=== PATIENT | female | born 1985 | race Caucasian/White ===

== ENCOUNTER 2020-10-27 18:33 | Emergency (ER) | payer BC, SELFPAY ==
[2020-10-27 18:35] VITALS: BP 162/96; PULSE 87; RESP 18; TEMP 36.4; O2SAT 99; BMI 38.9
--- NOTE | 2020-10-27 18:45 | ED.VIS.GEN ---
History of Present Illness Chief Complaint: Sore Throat Informant: Patient Onset: Yesterday Context: Sudden Onset Timing: Continuous Quality: Tight narrowing sensation of throat Location: Neck Current Severity: Mild Maximum Severity: Moderate Worsened by: Possibly swallowing Relieved by: Nothing Associated Symptoms: No drooling, change in voice Past Medical History - Allergies and Home Meds Allergies/Adverse Reactions: Allergies cefaclor [From Ceclor] Allergy (Verified 10/27/20 18:34) PT UNSURE OF REACTION Physical Exam Vital Signs/Narrative: Vital Signs Temp Pulse Resp BP Pulse Ox 10/27/20 18:35 97.5 F L 87 18 162/96 H 99 Diagnostic/Tx/Re-eval Chest X-Ray - ED: 2 View, Read by ED Physician, Normal, - - Subareolar area is normal-appearing. Prevertebral space is normal. Epiglottis appears normal. There is no narrowing of the airway. ED Disposition - Plan for ED Patient: Disposition: Home or Assisted Living Diagnosis: Dysphagia Instructions: ED Dysphagia (Adult) Prescriptions: Famotidine [Pepcid] 20 mg PO BID #28 tab Transmission Status: Pending to [id number] Referrals: Enrique Pandya MD [NON-STAFF] - 1 Week
--- NOTE | 2020-10-27 18:54 | RAD_ITS ---
STUDY: X-RAY - SOFT TISSUE NECK REASON FOR EXAM: Female, 35 years old. Throat feels tight and narrowing TECHNIQUE: 2 view(s) of the neck were obtained. COMPARISON: None. FINDINGS: Normal visualized nasopharynx, oropharynx, hypopharynx. Normal epiglottis. Normal visualized subglottic tracheal air column. Normal prevertebral soft tissue structures. Normal visualized osseous structures. The soft tissue structures are unremarkable. RAD/Neck for Soft Tissue IMPRESSION: Normal x-ray soft tissue neck. Electronically Signed: David Fuentes DO at 20:26 EDT Tel [phone], Service support ,
== END 2020-10-27 19:44 | disposition home or self-care (01) ==
LOC: ED 19:31
PROVIDERS: Emergency Provider Emergency Medicine; PCP Family Medicine
DX: R13.10 Dysphagia, unspecified (principal)
CPT/HCPCS: 70360; 99282

== ENCOUNTER 2021-01-30 22:34 | Emergency (ER) | payer BC, SELFPAY ==
[2021-01-30 22:35] VITALS: BP 155/111; PULSE 108; RESP 16; TEMP 36.3; O2SAT 97; BMI 39.1
--- NOTE | 2021-01-30 23:15 | EX.ED.DYSGE1 ---
HPI History of Present Illness Chief Complaint: Ear Problem Informant: patient Narrative Narrative: 35-year-old female presenting to the emergency room with left ear pain and sore throat. Patient states that for about a week now she has had an upper respiratory infection with some rhinorrhea and slight cough. She has previously had Covid. She states that her 2 oldest children went to vacation [employer] and came home with an illness. Her is also ill and is here to be seen. She notes subjective fever. [facility] Medical History (Updated 01/30/21 @ 23:[address] Kyree Villanueva DO) GERD (gastroesophageal reflux disease) Home Medications famotidine 20 mg PO BID #28 tab 10/27/20 [Rx Last Taken Unknown] amoxicillin 500 mg PO TID #30 tab 01/30/21 [Rx Last Taken Unknown] Allergy/AdvReac Type Severity Reaction Status Date / Time cefaclor [From [facility]] Allergy PT UNSURE Verified 10/27/20 18:34 OF REACTION Social History (Updated 01/30/21 @ 23:[address] Kyree Villanueva DO) Smoking Status: Never smoker substance use type: does not use ROS ROS ED Constitutional Constitutional ED: Reports fever(s) and subjective; Denies chills or weight loss Eyes Eyes: Denies change in vision or diplopia ENT ENT ED: Reports ear pain, rhinorrhea and sore throat Cardiovascular Cardiovascular: Denies chest pain, orthopnea, palpitations or racing heartbeat Respiratory/Chest Respiratory/Chest: Reports cough; Denies dyspnea or orthopnea Gastrointestinal Gastrointestinal: Denies abdominal pain, diarrhea, nausea or vomiting Genitourinary Genitourinary ED: Denies dysuria, hematuria or urinary frequency Musculoskeletal Musculoskeletal: Denies arthralgias or myalgias Integumentary Denies abscess or rash Neurologic Neurologic: Denies headache(s) or weakness Psychiatric Psychiatric: Denies anxiety, depression, suicidal ideation or suicidal thoughts Endocrine Endocrinology: Denies polydipsia, polyphagia or polyuria Allergic/Immunologic Allergic/Immunologic ED: Denies mouth swelling, tongue swelling or urticaria EXAM Physical Exam Const Vital Signs: 01/30/21 22:35 Temperature 97.3 F L Temperature Source Temporal Pulse Rate 108 H Respiratory Rate 16 Blood Pressure 155/111 H Blood Pressure Mean 125 Pulse Ox 97 Oxygen Delivery Method Room Air Positive well nourished and well developed General Appearance ED: well developed HEENT Reports normocephalic, head/scalp atraumatic and moist mucous membranes HEENT Narrative: Right tympanic membrane shows chronic scarring. Left tympanic membrane is erythematous with fluid and loss of landmarks. Mild oral pharyngeal erythema Eyes PERRL and EOMs intact bilaterally Neck no lymphadenopathy, supple and no JVD Resp normal respiratory effort and clear to auscultation bilaterally Cardio regular rate, regular rhythm and no murmurs GI normal to inspection, nondistended, normoactive bowel sounds and non-tender Palpation: soft Back/Spine no CVA tenderness and normal ROM Extremity normal to inspection General Extremety ED: Negative for edema General Extremity: Negative for edema Neuro oriented x3 and CN's II-XII intact bilaterally Sensorium / Orientation: alert Motor Exam: strength 5/5 throughout Psych mental status grossly normal Mood & Affect: Negative for depressed or tearful Skin no rashes or lesions noted and no wounds MDM MDM MDM Narrative Medical decision making narrative: Patient will be started on amoxicillin. Tylenol Motrin for pain. Follow-up as needed Discharge Plan Triage Chief Complaint: Ear Problem ED Provider: Kyree Villanueva Dx/Rx/DC Orders Clinical Impression: Viral URI, Acute left otitis media Instructions: ED Otitis Media Antibiotic ... Prescriptions: New amoxicillin 500 MG tablet 500 mg PO TID Qty: 30 RF: 0 No Action famotidine 20 MG tablet 20 mg PO BID Qty: 28 RF: 0 Primary Care Provider: Enrique Pandya Referrals: Enrique Pandya MD [Primary Care Provider] - 1 Week if not improving Disposition Disposition: Home, Self Care
[2021-01-30 23:36] VITALS: BP 155/111; PULSE 108; RESP 16; TEMP 36.3; O2SAT 97
[2021-01-30] MEDS: AMOXICILLIN 500 MG CAPSULE PO (23:36)
== END 2021-01-30 23:37 | disposition home or self-care (01) ==
PROVIDERS: Emergency Provider Emergency Medicine; PCP Family Medicine
DX: H66.92 Otitis media, unspecified, left ear (principal); J06.9 Acute upper respiratory infection, unspecified; K21.9 Gastro-esophageal reflux disease without esophagitis
CPT/HCPCS: 99282

== ENCOUNTER 2021-09-09 18:31 | Emergency (ER) | payer BC, SELFPAY ==
[2021-09-09 18:32] VITALS: BP 160/116; PULSE 99; RESP 18; TEMP 36.6; O2SAT 100; BMI 43.2
--- NOTE | 2021-09-09 19:00 | EX.ED.DYSGE1 ---
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 She also has history anxiety disorder. She recently started a job which is stressful per patient. She started this job 1 week ago. She is presently breast-feeding. She was on Xanax but discontinued after she became . She denies alcohol or drug use. She denies any other symptoms. Prior similar symptoms: Yes Recent Illness/Hospitalization: No [facility] Medical History (Updated 09/09/21 @ 19:[address] Mayo Bonilla MD) GERD (gastroesophageal reflux disease) Home Medications famotidine 20 mg PO BID #28 tab 10/27/20 [Rx Last Taken Unknown] amoxicillin 500 mg PO TID #30 tab 01/30/21 [Rx Last Taken Unknown] Allergy/AdvReac Type Severity Reaction Status Date / Time cefaclor [From Ceclor] Allergy PT UNSURE Verified 09/09/21 18:32 OF REACTION Social History (Updated 09/09/21 @ 19:[address] Mayo Bonilla MD) household members: children Smoking Status: Never smoker alcohol intake: current alcohol intake frequency: other substance use type: does not use ROS ROS ED Constitutional Constitutional ED: Denies chills, fever(s), subjective, sweats or weight loss Eyes Eyes: Denies blurry vision, change in vision or diplopia ENT ENT ED: Denies ear pain, rhinorrhea or sore throat Cardiovascular Cardiovascular: Reports palpitations and racing heartbeat; Denies chest pain, orthopnea or paroxysmal nocturnal dyspnea Respiratory/Chest Respiratory/Chest: Reports dyspnea; Denies cough, dyspnea on exertion, orthopnea, paroxysmal nocturnal dyspnea or sputum Gastrointestinal Gastrointestinal: Denies abdominal pain, diarrhea, nausea or vomiting Genitourinary Genitourinary ED: Denies dysuria, hematuria or urinary frequency Musculoskeletal Musculoskeletal: Denies arthralgias, myalgias or neck pain Neurologic Neurologic: Denies headache(s) or weakness Psychiatric Psychiatric: Reports anxiety; Denies depression Endocrine Endocrinology: Denies polydipsia, polyphagia or polyuria EXAM Physical Exam Const Vital Signs: 09/09/21 18:32 Temperature 98 F Temperature Source Temporal Pulse Rate 99 Respiratory Rate 18 Blood Pressure 160/116 H Blood Pressure Mean 130 Pulse Ox 100 Oxygen Delivery Method Room Air Positive well nourished, well developed and obese General Appearance ED: well developed and other Patient is taking very deep breaths. ; Negative for cyanotic, diaphoretic or NAD Nutritional Appearance: obese HEENT Reports moist mucous membranes HEENT Narrative: Positive's [place] sign Negative for trauma or tenderness Eyes PERRL and EOMs intact bilaterally General Eye ED: Negative for pale conjunctiva or scleral icterus Neck No no lymphadenopathy, No supple and No no JVD Resp normal respiratory effort Cardio regular rate and regular rhythm Extremity normal to inspection Neuro oriented x3 and CN's II-XII intact bilaterally Sensorium / Orientation: alert Psych Psych Narrative: Patient's heart rate elevated because she thought I said that her funduscopic exam was abnormal when I stated it was normal. She states she gets very anxious easily. Mood & Affect: anxious Skin no rashes or lesions noted and no wounds MDM MDM MDM Narrative Medical decision making narrative: Patient with anxiety reaction and hyperventilation syndrome. Patient does not want medications because she is breast-feeding. Discharge Plan Triage Chief Complaint: Anxiety ED Provider: Mayo Bonilla Dx/Rx/DC Orders Clinical Impression: Panic attack, Acute hyperventilation syndrome Instructions: ED Anxiety Reaction, ED Hyperventilation Syndrome Prescriptions: No Action famotidine 20 MG tablet 20 mg PO BID Qty: 28 RF: 0 amoxicillin 500 MG tablet 500 mg PO TID Qty: 30 RF: 0 Primary Care Provider: Enrique Pandya Referrals: Enrique Pandya MD [Primary Care Provider] - 5-7 Days Disposition Disposition: Home, Self Care
[2021-09-09 19:14] VITALS: BP 158/96; PULSE 96; RESP 16; O2SAT 97
== END 2021-09-09 19:16 | disposition home or self-care (01) ==
LOC: ED 19:10
PROVIDERS: Emergency Provider Emergency Medicine; PCP Family Medicine; Visit Provider Emergency Medicine
DX: F41.0 Panic disorder [episodic paroxysmal anxiety] (principal); F41.1 Generalized anxiety disorder; R06.4 Hyperventilation; K21.9 Gastro-esophageal reflux disease without esophagitis
CPT/HCPCS: 99284

== ENCOUNTER 2021-12-20 16:03 | Emergency (ER) | payer BC, SELFPAY ==
[2021-12-20 16:04] VITALS: BP 140/92; PULSE 85; RESP 14; TEMP 36.6; O2SAT 100; BMI 41.9
[2021-12-20 16:49] LABS: Absolute Lymphocyte Count 2.25 X10^3/uL (0.83-4.51); Absolute Neutrophil Count 8.2 X10^3/uL (2.0-7.7); Basophil# 0.06 X10^3/uL; Basophil% 0.5 % (0-1); Eosinophil# 0.12 X10^3/uL; Eosinophils% 1.1 % (0-5); Hematocrit 38.5 % (37-47); Hemoglobin 13.1 g/dL (12.0-15.0); Lymphocyte # 2.25 X10^3/ul (0.83-4.51); Lymphocyte % 19.8 % (19-41); Mean Corpuscular Hgb 30.3 pg (27.0-32.0); Mean Corpuscular Volume 88.9 fL (81-99); Monocyte# 0.71 X10^3/uL; Monocyte% 6.2 % (0-10); NRBC Flagged by Analyzer 0 % (0-5); Platelet Count 358 K/mm3 (150-450); RBC Distribution Width SD 39.3 fl (35.1-43.9); Red Blood Count 4.33 M/mm3 (4.2-5.4); White Blood Count 11.4 K/mm3 (4.4-11.0)
--- NOTE | 2021-12-20 16:54 | EDS_ITS ---
HPI <NED Merino - Last Filed: 12/20/21 18:51> History of Present Illness Chief Complaint: Nausea/Vomiting Narrative Narrative: Patient appears well, patient appears nontoxic, vital signs are stable. Patient presents to the emergency with complaints of nausea and vomiting status post 9 days gastric bypass. Patient states that yesterday she ate scrambled eggs in the morning, since eating the scrambled eggs she had pain in her abdomen shot to her back. She had multiple episodes of vomitus, back pain. She called her surgeon on-call who told her to go to the emergency department at [facility]. Patient was at [facility] for 6 hours did not g et seen and went home. Today, the patient felt much better however did have some dizziness feels dehydrated. She did go to urgent care who ruled her out for urinary tract infection however because of her dizziness want her to go to the emergency department for IV fluids. She denies any fever or chills. PFSH <END Merino - Last Filed: 12/20/21 18:51> PFSH Medical History (Updated 12/20/21 @ 18:51 by NED Merino) GERD (gastroesophageal reflux disease) Home Medications omeprazole 20 mg PO DAILY 12/20/21 [History Last Taken Unknown] Allergy/AdvReac Type Severity Reaction Status Date / Time cefaclor [From [facility]] Allergy PT UNSURE Verified 12/20/21 16:04 OF REACTION Social History (Updated 09/09/21 @ 19:[address] Mayo Bonilla MD) household members: children Smoking Status: Never smoker alcohol intake: current alcohol intake frequency: other substance use type: does not use ROS <NED Merino - Last Filed: 12/20/21 18:51> ROS ED ROS Narrative Constitutional: Negative for fever, chills, weight loss, weakness Eyes: Negative for vision loss, vision change, double vision ENT: Negative for any sore throat, ear pain, congestion Cardiovascular: Negative for any chest pain, tightness, palpitations Respiratory: Negative for any cough, sputum production, hemoptysis, dyspnea, dyspnea on exertion, orthopnea Gastrointestinal: Negative for any abdominal pain, diarrhea, constipation, blood in stool, blood in vomit. Positive for nausea and vomiting : Negative for any urinary frequency, dysuria, retention, blood in urine Muscle skeletal: Negative for any muscle joint pain, stiffness, myalgias, arthralgias, neck pain. Positive abdominal pain that radiates to the back Neurological: Negative for any headache, syncope, numbness or tingling, dizziness Skin: Negative for any rashes, lumps, itching, abrasions, lacerations Psychiatric: Negative for any depression, anxiety, stress, suicidal ideation, homicidal ideation Hematologic: Negative for any easy bruising, excessive bruising, easy bleeding Allergies: Negative for any eczema, hives, rash EXAM <NED Merino - Last Filed: 12/20/21 18:51> Physical Exam Narrative Exam Narrative: Vital signs reviewed. HEET: Head normocephalic atraumatic, TMs clear bilaterally. Posterior pharynx is clear, moist mucous membranes. Nares clear bilaterally. Neck: Supple with no lymphadenopathy or tenderness. No signs of meningismus, negative jolt sign. Cardiac: Regular rate and rhythm no murmurs gallops or rubs, equal peripheral pulses bilaterally. Respiratory: Lungs clear to auscultation bilaterally. No chest tenderness. Abdomen: Soft, nontender, nondistended. No abdominal bruit or pulsatile masses. No hepatosplenomegaly Extremities: No peripheral edema, no signs of gross trauma or deformity. Active full range of motion of all extremities. Neuro: Cranial nerves II through XII intact, no focal neurological deficits. Skin: Clean dry and intact with no rash, purpura, petechiae, vesicles or pustules. Backs/flank: No CVA tenderness, no midline spinal tenderness, no deformity. Psych: Normal mood and affect. No SI, HI or acute psychosis. Const Vital Signs: 12/20/21 16:04 Temperature 98 F Temperature Source Temporal Pulse Rate 85 Respiratory Rate 14 Blood Pressure 140/92 H Blood Pressure Mean 108 Pulse Ox 100 Oxygen Delivery Method Room Air Positive well nourished, well developed and obese General Appearance ED: well developed Nutritional Appearance: obese <Dr. María Chau MD - Last Filed: 12/20/21 23:48> Physical Exam Const Vital Signs: 12/20/21 16:04 Temperature 98 F Temperature Source Temporal Pulse Rate 85 Respiratory Rate 14 Blood Pressure 140/92 H Blood Pressure Mean 108 Pulse Ox 100 Oxygen Delivery Method Room Air MDM <NED Merino - Last Filed: 12/20/21 18:51> [facility] MDM Narrative Medical decision making narrative: Patient appears well, patient appears nontoxic, vital signs are stable. Patient presents to the emergency department with complaints of nausea and vomiting post gastric bypass 9 days ago. Patient did go to [facility] last evening for 6 hours did not get seen and then was told to come here the next day. Patient has no pain today. Patient states she just felt dehydrated was little dizzy. Patient did receive basic laboratory values, patient CBC only shows slight leukocytosis with a white blood count of 11.4. Patient's chemistries were unremarkable. Patient did receive IV fluids, she did feel better, while at rest she is asymptomatic. Patient did contact her surgeon while she was here, and she was told to only drink clear liquids until follow-up. At this time, there is no acute pathology, patient is in room looking comfortable and in no distress vital signs are stable. Patient stable for discharge. Instructed return for any worsening symptoms. Lab Data Attestation: I reviewed the patient's lab results. Labs: Laboratory Results - last 24 hr 12/20/21 12/20/21 12/20/21 16:30 16:30 17:40 WBC 11.4 H RBC 4.33 Hgb 13.1 Hct 38.5 MCV 88.9 MCH 30.3 MCHC 34.0 RDW Std Deviation 39.3 RDW Coeff of Jase 12.0 Plt Count 358 MPV 10.0 Immature Gran % (Auto) 0.400 Neut % (Auto) 72.0 H Lymph % (Auto) 19.8 [place] % (Auto) 6.2 Eos % (Auto) 1.1 Baso % (Auto) 0.5 Absolute Neuts (auto) 8.2 H Absolute Lymphs (auto) 2.25 Nucleated RBC % 0 Sodium Cancelled 137 Potassium Cancelled 4.8 Chloride Cancelled 107 Carbon Dioxide Cancelled 24.0 Anion Gap Cancelled 6 BUN Cancelled 16 Creatinine Cancelled 0.64 Estim Creat Clear Calc Cancelled 119.31 Est GFR (MDRD) Af Amer Cancelled 134 Est GFR (MDRD) Non-Af Cancelled 111 BUN/Creatinine Ratio Cancelled 24.8 H Glucose Cancelled 93 Calcium Cancelled 8.5 Total Bilirubin Cancelled 0.50 AST Cancelled 52 H ALT Cancelled 74 H Alkaline Phosphatase Cancelled 59 Total Protein Cancelled 7.0 Albumin Cancelled 3.2 Globulin Cancelled 3.8 Albumin/Globulin Ratio Cancelled 0.8 L Lipase Cancelled 145 <Dr. María Chau MD - Last Filed: 12/20/21 23:48> [facility] Lab Data Labs: Laboratory Results - last 24 hr 12/20/21 12/20/21 12/20/21 16:30 16:30 17:40 WBC 11.4 H RBC 4.33 Hgb 13.1 Hct 38.5 MCV 88.9 MCH 30.3 MCHC 34.0 RDW Std Deviation 39.3 RDW Coeff of Jase 12.0 Plt Count 358 MPV 10.0 Immature Gran % (Auto) 0.400 Neut % (Auto) 72.0 H Lymph % (Auto) 19.8 [place] % (Auto) 6.2 Eos % (Auto) 1.1 Baso % (Auto) 0.5 Absolute Neuts (auto) 8.2 H Absolute Lymphs (auto) 2.25 Nucleated RBC % 0 Sodium Cancelled 137 Potassium Cancelled 4.8 Chloride Cancelled 107 Carbon Dioxide Cancelled 24.0 Anion Gap Cancelled 6 BUN Cancelled 16 Creatinine Cancelled 0.64 Estim Creat Clear Calc Cancelled 119.31 Est GFR (MDRD) Af Amer Cancelled 134 Est GFR (MDRD) Non-Af Cancelled 111 BUN/Creatinine Ratio Cancelled 24.8 H Glucose Cancelled 93 Calcium Cancelled 8.5 Total Bilirubin Cancelled 0.50 AST Cancelled 52 H ALT Cancelled 74 H Alkaline Phosphatase Cancelled 59 Total Protein Cancelled 7.0 Albumin Cancelled 3.2 Globulin Cancelled 3.8 Albumin/Globulin Ratio Cancelled 0.8 L Lipase Cancelled 145 Treatment and Re-Evaluation Narrative: Patient seen and evaluated with STALIN. I personally interviewed and examined the patient. I was involved in all aspects of patient's orders, interpretation of results, and treatment. Patient presents secondary to concerns for dehydration. Patient had gastric bypass surgery 9 days ago. Yesterday she ate some scrambled eggs and developed epigastric abdominal pain. She went to [facility] to be evaluated as this is where she had had her surgery. She waited several hours and still had not been seen. She vomited and that her pain felt improved. There was concern that the patient was dehydrated and came in for IV fluids. She denies nausea at this time. Patient sitting upright in bed no acute distress. Head neck examination unremarkable. Heart is regular rate and rhythm. Lung sounds are clear. Abdomen is soft and nontender. Patient is given IV fluids. Lab work obtained. CBC reveals mildly elevated white count at 11.4. Chemistry studies unremarkable. Patient discharged home to continue her current regimen. Return instructions given. Discharge Plan Triage Chief Complaint: Nausea/Vomiting ED Midlevel Provider: Jluis Calles ED Provider: María Chau Dx/Rx/DC Orders Clinical Impression: Nausea & vomiting Instructions: ED Vomiting (Adult) Prescriptions: No Action omeprazole 20 mg capsule,delayed release(DR/EC) 20 mg PO DAILY RF: 0 Primary Care Provider: Enrique Pandya Referrals: Enrique Pandya MD [Primary Care Provider] - Activity Restrictions/Additional Instructions: Please follow your surgeons instructions. Please change positions slowly. Return for any other pain, nausea vomiting Print Language: Icelandic Disposition Disposition: Home, Self Care Discharge Date/Time: 12/20/21 18:56
[2021-12-20 18:25] LABS: ALB/GLOB Ratio 0.8 RATIO (0.9-2.4); AST(SGOT) 52 U/L (15-37); Alanine Aminotransfer ALT/SGPT 74 U/L (13-56); Albumin, Serum 3.2 g/dL (3.2-5.0); Alkaline Phosphatase 59 U/L (45-117); Anion Gap 6 (5-15); BUN 16 mg/dL (7-18); BUN/Creat Ratio 24.8 RATIO (10-20); Calcium,Total 8.5 mg/dL (8.5-10.1); Chloride 107 mmol/L (98-107); Creatinine, Serum 0.64 mg/dL (0.55-1.02); EST Glomerular Filtration Rate 111 mL/min (>60); Est Glom Filt Rate - Afr Amer 134 mL/min (>60); Estimated Creatinine Clearance 119.31 ml/min; Globulin 3.8 g/dL (2.2-4.2); Glucose 93 mg/dL (74-106); Lipase 145 U/L (73-393); Potassium 4.8 mmol/L (3.5-5.1); Sodium Level 137 mmol/L (136-145)
== END 2021-12-20 18:56 | disposition home or self-care (01) ==
PROVIDERS: Nurse Practitioner; Emergency Provider Emergency Medicine; PCP Family Medicine; Visit Provider Emergency Medicine
DX: R11.2 Nausea with vomiting, unspecified (principal); M54.9 Dorsalgia, unspecified; R42 Dizziness and giddiness; Z98.84 Bariatric surgery status; K21.9 Gastro-esophageal reflux disease without esophagitis
CPT/HCPCS: 80053; 83690; 85025; 99282; J7030; A4216

== ENCOUNTER 2022-08-12 16:48 | Emergency (ER) | payer BC, SELFPAY ==
[2022-08-12 16:50] VITALS: BP 154/93; PULSE 100; RESP 14; TEMP 36.6; O2SAT 100; BMI 25.7
--- NOTE | 2022-08-12 16:50 | ED.RN ---
PT COMPLAINING AND ANGRY D/T WAIT.
--- NOTE | 2022-08-12 16:52 | ED.RN ---
PT IRRITATED WITH QUESTIONS IN TRIAGE.
--- NOTE | 2022-08-12 17:38 | ED.RN ---
pt demanding to lay down. pt placed in spare triage room.
[2022-08-12] MEDS: Loperamide 2 MG Capsule 4 MG PO (19:32)
[2022-08-12] MEDS: 0.9% Normal Saline 1,000 ML 1000 ML IV (19:33)
[2022-08-12 19:36] VITALS: PULSE 84
[2022-08-12 19:45] LABS: Absolute Neutrophil Count 5.9 X10^3/uL (2.0-7.7); Basophil# 0.05 X10^3/uL; Basophil% 0.6 % (0-1); Color, Urine Yellow (Yellow); Eosinophil# 0.05 X10^3/uL; Eosinophils% 0.6 % (0-5); Glucose, Dipstick Normal (Normal); Hematocrit 39.2 % (37-47); Hemoglobin 12.6 g/dL (12.0-15.0); Ketone-Dipstick Negative (Negative); Leukocyte Esterase-Dipstick Negative /ul (Negative); Mean Corp Hgb Conc 32.1 g/dL (32-36); Mean Corpuscular Hgb 28.6 pg (27.0-32.0); Mean Corpuscular Volume 88.9 fL (81-99); Monocyte# 0.37 X10^3/uL; Monocyte% 4.5 % (0-10); NRBC Flagged by Analyzer 0 % (0-5); Neutrophil # 5.88 X10^3/uL (2.7-7.7); Neutrophil % 71.1 % (47-70); Nitrite-Dipstick Negative (Negative); Occult Blood-Urine Negative /ul (Negative); Platelet Count 358 K/mm3 (150-450); Protein-Dipstick Negative (Negative); RBC Distribution Width SD 42.3 fl (35.1-43.9); Red Blood Count 4.41 M/mm3 (4.2-5.4); Specific Gravity, Urine 1.015 (1.002-1.030); Urine Bilirubin Dipstick Negative (Negative); Urine Clarity Clear (Clear); Urine Urobilinogen Normal (Normal); White Blood Count 8.3 K/mm3 (4.4-11.0)
[2022-08-12 19:57] LABS: Anion Gap 10 (5-15); BUN 14 mg/dL (7-18); BUN/Creat Ratio 16.3 RATIO (10-20); Calcium,Total 9.4 mg/dL (8.5-10.1); Chloride 108 mmol/L (98-107); Creatinine, Serum 0.86 mg/dL (0.55-1.02); EST Glomerular Filtration Rate 79 mL/min (>60); Est Glom Filt Rate - Afr Amer 96 mL/min (>60); Estimated Creatinine Clearance 78.09 ml/min; Glucose 114 mg/dL (74-106); Potassium 3.3 mmol/L (3.5-5.1); Sodium Level 141 mmol/L (136-145)
--- NOTE | 2022-08-12 21:06 | EX.ED.DYSGE1 ---
HPI History of Present Illness Chief Complaint: Weakness Detail of Chief Complaint: Generalized weakness, orthostatic symptoms, rapid heart rate and diarrhea Informant: patient Onset/Context/Timing Onset: Days (Abdomen started 8 days ago) Context: Sudden Onset Timing: Waxes and wanes Quality: Weakness, orthostatic symptoms and anxiousness when she stands. Location: GI and cardiovascular Current Severity: Mild Maximum Severity: Severe Worsened by: Standing Relieved by: Nothing Associated Symptoms Associated Symptoms: Nausea and minimal vomiting Narrative Narrative: Patient is a 37-year-old female status post gastric bypass surgery with 69 pound weight loss. She has history anxiety. She treats her anxiety with supplements. She is on supplements. She denies recent illness and use of antibiotics. She denies contact with anyone that is ill. She denies blood or mucus in her diarrhea. She denies history of pseudomembranous colitis. She denies decreased urine output. She states she believes she is well-hydrated. She denies documented fever. She states when she stands she becomes anxious and lightheaded and her heart rate is fast. She endorses myalgias and arthralgias. Denies joint swelling. She has taken nothing for her nausea or vomiting. Prior similar symptoms: No Recent Illness/Hospitalization: No PFSH PFSH Medical History GERD (gastroesophageal reflux disease) Home Medications omeprazole 20 mg capsule,delayed release 20 mg PO DAILY 12/20/21 [History Last Taken Unknown] Allergy/AdvReac Type Severity Reaction Status Date / Time cefaclor [facility] Allergy PT UNSURE Verified 12/20/21 16:04 OF REACTION Social History household members: children Smoking Status: Never smoker alcohol intake: current alcohol intake frequency: other substance use type: does not use ROS ROS ED Constitutional Constitutional ED: Reports chills and weight loss; Denies sweats Eyes Eyes: Denies blurry vision, change in vision or diplopia ENT ENT ED: Denies ear pain, rhinorrhea or sore throat Cardiovascular Cardiovascular: Reports palpitations and racing heartbeat; Denies chest pain Respiratory/Chest Respiratory/Chest: Denies cough, dyspnea or dyspnea on exertion Gastrointestinal Gastrointestinal: Reports abdominal pain, diarrhea and nausea; Denies melena Genitourinary Genitourinary ED: Denies dysuria, hematuria or urinary frequency Musculoskeletal Musculoskeletal: Reports arthralgias and myalgias; Denies back pain or neck pain Integumentary Denies abscess, Abrasions or rash Neurologic Neurologic: Reports weakness; Denies headache(s) or paresthesias Psychiatric Psychiatric: Reports anxiety; Denies depression Hematologic/Lymphatic Hematologic/Lymphatic: Reports systems reviewed and no addt'l complaints, except as documented EXAM Physical Exam Const Vital Signs: 08/12/22 16:50 08/12/22 19:36 08/12/22 21:19 Temperature 98 F Temperature Source Temporal Pulse Rate 100 84 Pulse Rate [Lying] 66 Pulse Rate [Sitting (for 1 minute prior to obtaining)] 70 Pulse Rate [Standing (for 1 minute prior to obtaining)] 105 H Respiratory Rate 14 Blood Pressure 154/93 H Blood Pressure [Lying] 125/71 H Blood Pressure [Sitting (for 1 minute prior to obtaining)] 145/91 H Blood Pressure [Standing (for 1 minute prior to obtaining)] 145/101 H Blood Pressure Mean 113 Blood Pressure Mean [Lying] 89 Blood Pressure Mean [Sitting (for 1 minute prior to obtaining)] 109 Blood Pressure Mean [Standing (for 1 minute prior to obtaining)] 115 Pulse Ox 100 Oxygen Delivery Method Room Air 08/12/22 22:25 08/12/22 22:49 Temperature Temperature Source Pulse Rate 70 Pulse Rate [Lying] 70 Pulse Rate [Sitting (for 1 minute prior to obtaining)] 94 Pulse Rate [Standing (for 1 minute prior to obtaining)] 100 Respiratory Rate 18 Blood Pressure 144/83 H Blood Pressure [Lying] 144/83 H Blood Pressure [Sitting (for 1 minute prior to obtaining)] 157/99 H Blood Pressure [Standing (for 1 minute prior to obtaining)] 160/110 H Blood Pressure Mean 103 Blood Pressure Mean [Lying] 103 Blood Pressure Mean [Sitting (for 1 minute prior to obtaining)] 118 Blood Pressure Mean [Standing (for 1 minute prior to obtaining)] 126 Pulse Ox 100 Oxygen Delivery Method Room Air Positive well nourished and well developed General Appearance ED: well developed, NAD and pallor; Negative for cyanotic or diaphoretic HEENT Reports moist mucous membranes HEENT Narrative: Head is atraumatic normocephalic. Ears normal. Nares patent. Uvula midline. No deviation with protrusion. No erythema or exudate the posterior pharynx. Eyes PERRL and EOMs intact bilaterally General Eye ED: Negative for pale conjunctiva or scleral icterus Neck no lymphadenopathy, supple and no JVD Chest Wall inspection of chest normal and palpation of chest normal Resp normal respiratory effort Cardio regular rate, regular rhythm, S1 normal heart sound, S2 normal heart sound and no murmurs GI normal to inspection, nondistended, normoactive bowel sounds, non-tender and no masses; Negative for hepatosplenomegaly Auscultation: normoactive bowel sounds Back/Spine no CVA tenderness Extremity General Extremety ED: Negative for edema or tenderness General Extremity: Negative for edema Neuro no sensory deficits noted Psych mental status grossly normal Skin no rashes or lesions noted and no wounds General Skin Exam: elasticity normal and pallor; Negative for jaundice MDM MDM MDM Narrative Medical decision making narrative: History of bypass surgery and diarrhea will obtain electrolytes to assess renal function, CO2 anion gap and evaluate for hypokalemia. Urine was obtained to assess specific gravity and determine if there is ketones. CBC to evaluate for anemia. Patient received 1 L normal saline. Orthostatic vitals were ordered. They have not been performed. She was treated with Imodium for her diarrhea. She did not receive Zofran since presently she has no complaint of nausea or vomiting. Patient's records were reviewed. Patient had a visit at [place] for sensory deficit and abnormal vaginal bleeding on July 17 and respectively. She had a visit at [facility] on 06/30/2022 for malabsorption due to her gastric bypass surgery. Patient's orthostatic vital signs were positive. Her orthostatic vital signs remain positive after second liter of fluid. Her heart rate mounika 30 beats. This is an improvement from heart rate after first liter. Third liter of normal saline was ordered. Since the patient is under the age of 41 and no diuretics per literature the potassium does not need to be replenished. Lab Data Attestation: I reviewed the patient's lab results. Lab results narrative: CBC is unremarkable. Basic metabolic panel is unremarkable. Macro urine is negative. Labs: Laboratory Results - last 24 hr 08/12/22 08/12/22 08/12/22 19:30 19:30 19:30 WBC 8.3 RBC 4.41 Hgb 12.6 Hct 39.2 MCV 88.9 MCH 28.6 MCHC 32.1 RDW Std Deviation 42.3 RDW Coeff of Jase 13.0 Plt Count 358 MPV 11.0 Immature Gran % (Auto) 0.200 Neut % (Auto) 71.1 H Lymph % (Auto) 23.0 [place] % (Auto) 4.5 Eos % (Auto) 0.6 Baso % (Auto) 0.6 Absolute Neuts (auto) 5.9 Absolute Lymphs (auto) 1.90 Nucleated RBC % 0 Sodium 141 Potassium 3.3 L Chloride 108 H Carbon Dioxide 23.0 Anion Gap 10 BUN 14 Creatinine 0.86 Estim Creat Clear Calc 78.09 Est GFR (MDRD) Af Amer 96 Est GFR (MDRD) Non-Af 79 BUN/Creatinine Ratio 16.3 Glucose 114 H Calcium 9.4 Urine Color Yellow Urine Clarity Clear Urine pH 8.0 Ur Specific [place] 1.015 Urine Protein Negative Urine Glucose (UA) Normal Urine Ketones Negative Urine Occult Blood Negative Urine Nitrite Negative Urine Bilirubin Negative Urine Urobilinogen Normal Ur Leukocyte Esterase Negative Treatment and Re-Evaluation Narrative: Orthostatics reveals a increase of heart rate of 45 beats. Discharge Plan Triage Chief Complaint: Weakness ED Provider: Mayo Bonilla Dx/Rx/DC Orders Clinical Impression: Diarrhea, S/P gastric bypass, Orthostatic hypertension, Dehydration, moderate, Acute hypokalemia Instructions: ED Dehydration (Adult), ED Diarrhea, Unknown Cause, ED Hypotension, Orthostatic Prescriptions: No Action omeprazole 20 mg capsule,delayed release(DR/EC) 20 mg PO DAILY Primary Care Provider: Enrique Pandya Referrals: Enrqiue Pandya MD [Primary Care Provider] - 1-2 Days if not improving Activity Restrictions/Additional Instructions: 1. Take Imodium 2 mg with each loose stool up to 6 in 1 day 2. You need to increase your fluid intake 3. If you continue to have significant mount of diarrhea follow-up with your doctor or return to the emergency department Disposition Disposition: Home, Self Care
[2022-08-12] MEDS: 0.9% Normal Saline 1,000 ML 999 ML IV ×2 (21:18→22:55)
[2022-08-12 21:19] VITALS: BP 125/71; BP 145/101; BP 145/91; PULSE 105; PULSE 66; PULSE 70
[2022-08-12 22:25] VITALS: BP 144/83; PULSE 70; RESP 18; O2SAT 100
[2022-08-12 22:49] VITALS: BP 144/83; BP 157/99; BP 160/110; PULSE 100; PULSE 70; PULSE 94
[2022-08-13 00:06] VITALS: BP 138/74; PULSE 62; RESP 14; O2SAT 97
== END 2022-08-13 00:08 | disposition home or self-care (01) ==
PROVIDERS: Emergency Provider Emergency Medicine; PCP Family Medicine; Visit Provider Emergency Medicine
DX: R19.7 Diarrhea, unspecified (principal); E87.6 Hypokalemia; F41.9 Anxiety disorder, unspecified; E86.0 Dehydration; R11.2 Nausea with vomiting, unspecified; Z98.84 Bariatric surgery status; I95.1 Orthostatic hypotension
CPT/HCPCS: 80048; 81002; 85025; 96360; 96361; 99284; J7030; A4216

== ENCOUNTER → 2024-01-28 | Outpatient (CLI) | payer BC, SELFPAY ==
--- NOTE | 2024-01-28 16:31 | MRI_ITS ---
EXAM: MR HEAD WITHOUT AND WITH INTRAVENOUS CONTRAST CLINICAL INDICATION: migraine headaches; lightheadedness TECHNIQUE: Multiplanar and multisequence MR images of the brain were obtained without and with intravenous contrast. CONTRAST: IV 18cc clariscan COMPARISON: No relevant prior studies available. FINDINGS: BRAIN AND EXTRA-AXIAL SPACES: No significant abnormality. No intra- or extra-axial hemorrhage. No evidence of acute infarct. No intracranial mass or mass effect. There is preservation of the cronin/white matter interface. Posterior fossa structures are unremarkable. Ventricles are appropriate for age. No hydrocephalus. Basal cisterns are patent. No pathologic parenchymal or meningeal enhancement. SELLA: No significant abnormality. Normal sella turcica, pituitary gland, infundibular stalk, optic chiasm and hypothalamus. AUDITORY SYSTEM: No significant abnormality. The internal auditory canals are patent. BONES/JOINTS: No significant abnormality. No discrete lytic or blastic abnormalities. SINUSES: Trace mucosal thickening in the paranasal sinuses. MASTOID AIR CELLS: Normal as visualized. Clear. ORBITS: Normal as visualized. Both globes, extraocular muscles, optic nerves and retrobulbar fat appear unremarkable. VASCULATURE: Normal as visualized. Normal flow voids in the major intracranial circulation. MRI/Brain W/WO Contrast IMPRESSION: No acute findings in the head/brain. Trace mucosal thickening in the paranasal sinuses. Correlate for associated symptoms. Electronically Signed: Bj Morales DO at 23:53 EDT ,
== END | disposition home or self-care (01) ==
LOC: MRI 12:42
PROVIDERS: PCP Family Medicine; Referring Provider Psychiatry & Neurology Neurology; Visit Provider Psychiatry & Neurology Neurology
DX: G47.33 Obstructive sleep apnea (adult) (pediatric) (principal)
CPT/HCPCS: 70553; 95806; A9575

== ENCOUNTER → 2024-02-03 | Outpatient (CLI) | payer BC, SELFPAY ==
--- NOTE | 2024-02-03 14:47 | NEURO ---
NCS and/or EMG Patient Report Ordering Doctor: Marc Mahoney DATE OF SERVICE: 02/03/24 Clinical Summary: 38 year old female patient with symptoms of numbness in the medial digits of the left hand. Nerve Conduction Studies Summary: The left ulnar-D5 SNAP distal latency was prolonged. The left ulnar-ADM CMAP distal latency was prolonged. There was approximately a 12% drop in the left ulnar-ADM CMAP amplitude across the elbow - indicative of partial motor conduction block. There was left ulnar motor conduction velocity slowing across the elbow. Needle Examination Summary: Needle examination of select muscles of the left upper extremity was normal. Impression: There is electrodiagnostic evidence of the following - 1) Left ulnar mononeuropathy at the elbow, with demyelinating features There is no electrodiagnostic evidence of a left median mononeuropathy at the wrist (carpal tunnel syndrome) or left cervical radiculopathy. Multi Select Codes Neurology Neurology Interp Codes: 77064-04 Musc test done w/n test comp (interp) (1) and 82838-93 Nrv cndj test 7-8 studies (interp)
== END | disposition home or self-care (01) ==
PROVIDERS: PCP Family Medicine; Referring Provider Psychiatry & Neurology Neurology; Visit Provider Psychiatry & Neurology Neurology
DX: R20.2 Paresthesia of skin (principal); G56.22 Lesion of ulnar nerve, left upper limb
CPT/HCPCS: 95886; 95910

== ENCOUNTER → 2024-02-19 | Outpatient (CLI) | payer BC, SELFPAY | END | disposition home or self-care (01) | LOC: MFPLAB 08:59 | PROVIDERS: PCP Family Medicine; Visit Provider Psychiatry & Neurology Neurology | DX: I95.1 Orthostatic hypotension (principal) | CPT/HCPCS: 36415; 82533 ==

== ENCOUNTER → 2024-05-23 | Outpatient (CLI) | payer BC, SELFPAY ==
[2024-05-23 12:16] LABS: Absolute Lymphocyte Count 1.74 X10^3/uL (0.83-4.51); Absolute Neutrophil Count 2.7 X10^3/uL (2.0-7.7); Basophil# 0.06 X10^3/uL; Basophil% 1.2 % (0-1); Eosinophil# 0.07 X10^3/uL; Eosinophils% 1.5 % (0-5); Hematocrit 36.8 % (37-47); Hemoglobin 12.1 g/dL (12.0-15.0); Lymphocyte # 1.74 X10^3/ul (0.83-4.51); Lymphocyte % 36.2 % (19-41); Mean Corp Hgb Conc 32.9 g/dL (32-36); Mean Corpuscular Hgb 31.1 pg (27.0-32.0); Mean Corpuscular Volume 94.6 fL (81-99); Mean Platelet Vol. 9.9 fl (6.2-12.0); Monocyte# 0.23 X10^3/uL; Monocyte% 4.8 % (0-10); NRBC Flagged by Analyzer 0 % (0-5); Neutrophil % 56.1 % (47-70); Platelet Count 295 K/mm3 (150-450); RBC Distribution Width CV 11.9 % (11.6-14.6); RBC Distribution Width SD 41.1 fl (35.1-43.9); Red Blood Count 3.89 M/mm3 (4.2-5.4); White Blood Count 4.8 K/mm3 (4.4-11.0)
[2024-05-23 12:44] LABS: Vitamin B12 892 pg/mL (211-911); Vitamin D,25 Hydroxy 33.5 ng/mL
[2024-05-23 13:50] LABS: AST(SGOT) 19 U/L (15-37); Alanine Aminotransfer ALT/SGPT 55 U/L (13-56); Albumin, Serum 3.7 g/dL (3.2-5.0); Alkaline Phosphatase 65 U/L (45-117); Anion Gap 10 (5-15); BUN 11 mg/dL (7-18); Calcium,Total 8.8 mg/dL (8.5-10.1); Chloride 109 mmol/L (98-107); Creatinine, Serum 0.84 mg/dL (0.55-1.02); EST Glomerular Filtration Rate 80 mL/min (>60); Est Glom Filt Rate - Afr Amer 97 mL/min (>60); Ferritin 15 ng/mL (8-252); Globulin 3.6 g/dL (2.2-4.2); Glucose 111 mg/dL (74-106); Iron 51 ug/dL (50-170); Lipase 51 U/L (13-75); Potassium 3.8 mmol/L (3.5-5.1); Protein, Total 7.3 g/dL (6.4-8.2); Sodium Level 142 mmol/L (136-145); Thyroid Stim Hormone (TSH) 0.541 uIU/mL (0.358-3.740)
== END | disposition home or self-care (01) ==
PROVIDERS: PCP Family Medicine; Referring Provider Family Medicine; Visit Provider Family Medicine
DX: R11.0 Nausea (principal); Z98.84 Bariatric surgery status; E61.1 Iron deficiency
CPT/HCPCS: 36415; 80053; 82306; 82607; 82728; 82746; 83540; 83690; 84443; 85025

== ENCOUNTER → 2025-04-24 | Outpatient (CLI) | payer BC, SELFPAY ==
[2025-04-24 12:31] LABS: Hematocrit 36.6 % (37-47); Hemoglobin 12.0 g/dL (12.0-15.0); Immature Granulocytes Count 0.010 X10^3/uL (0.0-0.0); Mean Corp Hgb Conc 32.8 g/dL (32-36); Mean Corpuscular Volume 94.6 fL (81-99); Mean Platelet Vol. 10.3 fl (6.2-12.0); NRBC Flagged by Analyzer 0 % (0-5); Platelet Count 310 K/mm3 (150-450); RBC Distribution Width CV 11.6 % (11.6-14.6); RBC Distribution Width SD 39.7 fl (35.1-43.9); Red Blood Count 3.87 M/mm3 (4.2-5.4); White Blood Count 4.2 K/mm3 (4.4-11.0)
[2025-04-24 12:40] LABS: Partial Thromboplast Time 28.8 Seconds (24.1-36.2); Prothrombin Time (Protime)PT. 13.8 SECONDS (11.7-14.9)
[2025-04-24 13:08] LABS: AST(SGOT) 24 U/L (<=31); Alanine Aminotransfer ALT/SGPT 30 U/L (<=34); Albumin, Serum 4.4 g/dL (3.5-5.0); Alkaline Phosphatase 62 U/L (35-104); Anion Gap 11 (5-15); BUN 12 mg/dL (4-19); BUN/Creat Ratio 14.2 RATIO (10-20); Calcium,Total 9.1 mg/dL (7.6-11.0); Carbon Dioxide 24.1 mmol/L (21.0-32.0); Chloride 104 mmol/L (98-108); Globulin 2.9 g/dL (2.2-4.2); Glucose 90 mg/dL (70-99); Potassium 4.0 mmol/L (3.3-5.1)
== END | disposition home or self-care (01) ==
LOC: MTLAB 10:50
PROVIDERS: PCP Family Medicine; Referring Provider Family Medicine; Visit Provider Family Medicine
DX: M79.7 Fibromyalgia (principal); R23.3 Spontaneous ecchymoses
CPT/HCPCS: 36415; 80053; 85025; 85610; 85670; 85730